=== PATIENT | male | born 1945 | race Caucasian/White ===

== ENCOUNTER → 2016-11-02 | Outpatient (CLI) | payer MEDICARE ==
[~2016-11-02] VITALS: Ht 179.1 cm; Wt 138.3 kg
[~2016-11-02] MED LIST: ASPI32ECTA PO; CELE-19 PO; FURO20TA2 PO; LIDOCAINE 2% INJ 100 MG/5 ML SDV (FOR ANES.) As Ordered ONE; LISI-538 PO; METF1000 PO; MONT10TA2 PO; MULT1TAB10 PO; NS 1,000 ML IV ONE; POTA10TA16 PO; PROPOFOL 200 MG/20 ML VIAL As Ordered ONE; TOPA50TA7 PO
--- NOTE | 2016-11-02 11:01 | ROOR ---
Patient Name: Wayne Tello Procedure Date: 11/02/2016 10:32 AM Date of : 1945 Age: 71 Room: [facility] Gender: Male Note Status: Finalized Procedure: Colonoscopy Indications: Heme positive stool Providers: DO Bailey Giraldo MD: ANGELINA ESCOBAR Requesting Provider: Medicines: Propofol per Anesthesia Complications: No immediate complications. Procedure: Pre-Anesthesia Assessment: - Prior to the procedure, a History and Physical was performed, and patient medications and allergies were reviewed. The patient is competent. The risks and benefits of the procedure and the sedation options and risks were discussed with the patient. All questions were answered and informed consent was obtained. Patient identification and proposed procedure were verified by the physician, the nurse, the anesthesiologist and the restorative care technician in the endoscopy suite. Mental Status Examination: alert and oriented. Airway Examination: normal oropharyngeal airway and neck mobility. Respiratory Examination: clear to auscultation. CV Examination: normal. Prophylactic Antibiotics: The patient does not require prophylactic antibiotics. Prior Anticoagulants: The patient has taken no previous anticoagulant or antiplatelet agents. ASA Grade Assessment: II - A patient with mild systemic disease. After reviewing the risks and benefits, the patient was deemed in satisfactory condition to undergo the procedure. The anesthesia plan was to use monitored anesthesia care (MAC). Immediately prior to administration of medications, the patient was re-assessed for adequacy to receive sedatives. The heart rate, respiratory rate, oxygen saturations, blood pressure, adequacy of pulmonary ventilation, and response to care were monitored throughout the procedure. The physical status of the patient was re-assessed after the procedure. The Colonoscope was introduced through the anus and advanced to the ascending colon. The colonoscopy was performed without difficulty. The patient tolerated the procedure well. Findings: The perianal exam findings include non-thrombosed internal hemorrhoids and internal hemorrhoids that prolapse with straining, but require manual replacement into the anal canal (Grade III). The exam was otherwise without abnormality on direct and retroflexion views. Impression: - Non-thrombosed internal hemorrhoids and internal hemorrhoids that prolapse with straining, but require manual replacement into the anal canal (Grade III) found on perianal exam. - The examination was otherwise normal on direct and retroflexion views. - No specimens collected. Recommendation: - Patient has a contact number available for emergencies. The signs and symptoms of potential delayed complications were discussed with the patient. Return to normal activities tomorrow. Written discharge instructions were provided to the patient. - Repeat colonoscopy in 5-10 years for screening purposes. - Return to my office in 2 weeks. - Telephone my office to schedule appointment. Niko Garcia DO 11/02/2016 11:01:01 AM This report has been signed electronically. Number of Addenda: 0 Note Initiated On: 11/02/2016 10:32 AM Estimated Blood Loss: Estimated blood loss was minimal.
[2016-11-02 11:25] VITALS: BP 133/66
== END ==
LOC: M OPP 09:44
PROVIDERS: ATTEND Surgery
DX: R19.5 Other fecal abnormalities (principal); K64.2 Third degree hemorrhoids; I10 Essential (primary) hypertension; E78.5 Hyperlipidemia, unspecified; E55.9 Vitamin D deficiency, unspecified; M19.90 Unspecified osteoarthritis, unspecified site; M54.2 Cervicalgia; M54.5 Low back pain; G47.30 Sleep apnea, unspecified; F41.9 Anxiety disorder, unspecified; Z87.891 Personal history of nicotine dependence; Z79.84 Long term (current) use of oral hypoglycemic drugs; Z79.899 Other long term (current) drug therapy

== ENCOUNTER 2023-01-25 11:04 | Day surgery (SDC) | payer MEDICARE, BC ==
[~2023-01-25] VITALS: Ht 177.8 cm; Wt 165.7 kg
[~2023-01-25 11:04] MED LIST changes: +ASPI-255 PO; -ASPI32ECTA PO; +BSS IRRIG/VANCO(10MG)/TOBRA(5MG)/EPINEPH(1:1000-0.5CC)500ML BAG-ORONLY IR ONE; +CEFUROXIME 1MG/0.1ML INTRACAMERAL INJ As Ordered ONE; -CELE-19 PO; +CELE1CAP4 PO; +FLOM0.4C39 PO; +LIDOCAINE 1% SDV 5ML VIAL As Ordered ONE; -LIDOCAINE 2% INJ 100 MG/5 ML SDV (FOR ANES.) As Ordered ONE; +LIDOCAINE 3.5 % 1ML OPHTH TOPICAL GEL OU ONE; -LISI-538 PO; +LISI20TA33 PO; -METF1000 PO; +METF10004 PO; +MIDAZOLAM INJ 2MG/2ML VIAL As Ordered ONE; -MONT10TA2 PO; +MONT10TA97 PO; -NS 1,000 ML IV ONE; +OFLOXACIN 0.3 % (OCUFLOX) OPTH SOL 5ML OD ONE; +OMEG12002 PO; +PHENYLEPHRINE 10% OPHTH SOL 5ML OD PRN; +POTA-149 PO; -POTA10TA16 PO; -PROPOFOL 200 MG/20 ML VIAL As Ordered ONE; -TOPA50TA7 PO; +TOPA50TA8 PO; +VITMTA PO
[2023-01-25] MEDS ORDERED: ACET650T15 PO (13:16)
[2023-01-25] MEDS: CYCLOPENTOLATE 1% OPHTH SOLN 2ML BTL OD SCH ×2 (13:18→13:23)
[2023-01-25] MEDS: TROPICAMIDE 1% OPHTH SOLN 15ML OD SCH ×2 (13:18→13:23)
[2023-01-25] MEDS: PHENYLEPHRINE 2.5% OPHTH SOL 2ML OD SCH ×2 (13:18→13:23)
[2023-01-25 14:20] VITALS: BP 151/71; TEMP 97.5; O2SAT 96
== END 2023-01-25 14:41 | disposition home or self-care (01) ==
LOC: M SDC 11:04
PROVIDERS: ATTEND Ophthalmology
DX: H25.11 Age-related nuclear cataract, right eye (principal); I10 Essential (primary) hypertension; M19.90 Unspecified osteoarthritis, unspecified site; M54.9 Dorsalgia, unspecified; R06.02 Shortness of breath; R06.83 Snoring; G47.30 Sleep apnea, unspecified; F17.220 Nicotine dependence, chewing tobacco, uncomplicated; Z79.84 Long term (current) use of oral hypoglycemic drugs; Z79.899 Other long term (current) drug therapy
CPT/HCPCS: 66982; J0697; J2250; V2632

== ENCOUNTER 2025-02-03 06:46 | Inpatient (IN) | payer MEDICARE ==
[~2025-02-03] VITALS: Ht 177.8 cm; Wt 157.3 kg
[2025-02-03] VITALS (7 sets, daily range): BP systolic 131–150; BP diastolic 64–97; TEMP 97.2–97.6; O2SAT 93–98
[~2025-02-03 06:46] MED LIST changes: +ACET-1515 PO; -BSS IRRIG/VANCO(10MG)/TOBRA(5MG)/EPINEPH(1:1000-0.5CC)500ML BAG-ORONLY IR ONE; -CEFUROXIME 1MG/0.1ML INTRACAMERAL INJ As Ordered ONE; -FLOM0.4C39 PO; -LIDOCAINE 1% SDV 5ML VIAL As Ordered ONE; -LIDOCAINE 3.5 % 1ML OPHTH TOPICAL GEL OU ONE; -MIDAZOLAM INJ 2MG/2ML VIAL As Ordered ONE; -OFLOXACIN 0.3 % (OCUFLOX) OPTH SOL 5ML OD ONE; -PHENYLEPHRINE 10% OPHTH SOL 5ML OD PRN; +TAMS-18 PO
[2025-02-03] MEDS ORDERED: IPRATROPIUM 0.5 MG/ALBUTEROL 2.5 MG INH SOL UD 3 ML As Ordered ONE (06:57)
[2025-02-03] MEDS ORDERED: ALBUTEROL SULFATE 2.5 MG/0.5 ML INH CONCENTRATE NEB SOLN As Ordered ONE (06:57)
[2025-02-03] MEDS: LEVALBUTEROL 1.25 MG 0.5ML CONCENTRATE NEB NEB ONE ×2 (07:05→07:06)
[2025-02-03] MEDS: IPRATROPIUM 0.5 MG/ALBUTEROL 2.5 MG INH SOL UD 3 ML NEB ONE ×2 (07:05→07:10)
[2025-02-03] MEDS: ALBUTEROL SULFATE 2.5 MG/0.5 ML INH CONCENTRATE NEB SOLN NEB ONE (07:11)
[2025-02-03 07:21] LABS: VENOUS BASE EXCESS -9.0 (-2.0-2.0); VENOUS HCO3 18.1 MMOL/L (23.0-27.0); VENOUS O2 SATURATION 86.2 % (60.0-80.0); VENOUS PARTIAL PRESSURE CO2 43.8 mmHg (38.0-50.0); VENOUS PARTIAL PRESSURE O2 53.9 mmHg (30.0-50.0); VENOUS PH 7.234 UNITS (7.330-7.430); VENOUS STANDARD HCO3 17.0 MMOL/L; VENOUS TOTAL CO2 19.4 MMOL/L (24.0-28.0)
[2025-02-03 07:33] LABS: BASO # 0.0 10^3/uL (0.0-0.2); BASO % 0.3 % (0.0-1.0); EOS # 0.1 10^3/uL (0.0-0.5); EOS % 0.9 % (0.0-3.0); LYMPH # 0.6 10^3/uL (1.5-5.0); LYMPH % 4.0 % (24.0-44.0); MONO # 1.2 10^3/uL (0.0-0.8); MONO % 7.9 % (2.0-8.0); NEUTROPHILS # 12.9 10^3/uL (1.5-8.5); NEUTROPHILS % 86.4 % (36.0-66.0); PLATELET COUNT, AUTOMATED 297 10^3/uL (150-450)
[2025-02-03] MEDS: FUROSEMIDE 100 MG/10 ML VIAL IV ONE (07:36)
[2025-02-03 07:59] LABS: ALT/SGPT 49.0 U/L (7.0-40); AST/SGOT 55.0 U/L (<34); CALCIUM LEVEL 9.0 MG/DL (8.3-10.6); CARBON DIOXIDE LEVEL 21.0 MMOL/L (20-31); CHLORIDE LEVEL 97.0 MMOL/L (98-107); CREATININE FOR GFR 1.47 MG/DL (0.70-1.30); GLOMERULAR FILTRATION RATE 47.9 (>35); POTASSIUM SERUM 5.4 MMOL/L (3.5-5.1); SODIUM LEVEL 129.0 MMOL/L (136-145)
[2025-02-03 08:01] LABS: THYROXINE (T4) 4.9 UG/DL (4.5-10.9)
[2025-02-03] MEDS ORDERED: ALBU8.5H INH (08:51)
[2025-02-03] MEDS ORDERED: METF-839 PO (08:51)
[2025-02-03] MEDS ORDERED: MELO15TA28 PO (08:51)
[2025-02-03] MEDS ORDERED: AZEL1SPR3 NARES (08:51)
[2025-02-03] MEDS ORDERED: DULO1CAP6 PO (08:51)
[2025-02-03] MEDS ORDERED: CIPR500T39 PO (08:54)
[2025-02-03] MEDS ORDERED: HOME MED LIST COMPLETE! XX SCH (08:55)
[2025-02-03] MEDS: TAMSULOSIN 0.4 MG CAP PO SCH (09:00)
[2025-02-03] MEDS: TOPIRAMATE 25 MG TAB PO SCH (09:00)
[2025-02-03] MEDS ORDERED: ISOVUE-370 76% 100 ML VIAL As Ordered ONE (09:18)
[2025-02-03 10:57] LABS: ABG BASE EXCESS -8.9 (-2.0-2.0); ABG HCO3 17.8 MMOL/L (22.0-26.0); ABG O2 SATURATION 99.1 % (95.0-99.0); ABG PARTIAL PRESSURE CO2 41.2 mmHg (35.0-45.0); ABG PARTIAL PRESSURE O2 149.1 mmHg (75.0-100.0); ABG STANDARD HCO3 17.4 MMOL/L. (22.0-26.0); ABG TOTAL CO2 19.0 MMOL/L (23.0-31.0); ABG pH (ARTERIAL) 7.253 UNITS (7.350-7.450)
[2025-02-03 11:16] LABS: POTASSIUM SERUM 5.0 MMOL/L (3.5-5.1)
[2025-02-03] MEDS: LevoFLOXacin IV 750 MG in IV 1 EA IV ONE (11:20)
[2025-02-03] MEDS ORDERED: DEXTROSE 50% 50 ML SYRINGE IV PRN (12:55)
[2025-02-03] MEDS ORDERED: ALBUTEROL SULFATE 2.5 MG/0.5 ML INH CONCENTRATE NEB SOLN NEB PRN (12:55)
[2025-02-03] MEDS ORDERED: GLUCAGON INJ 1 MG VIAL SC PRN (12:55)
[2025-02-03] MEDS ORDERED: GLUCOSE 4 GM CHEW PO PRN (12:55)
[2025-02-03] MEDS: FUROSEMIDE injection 100 MG, VIAL 2 BAG 13MM ADAPTER 1 EACH in NS 100 ML IV SCH (13:20)
[2025-02-03] MEDS: IPRATROPIUM 0.5 MG/2.5 ML (0.02%) SOLN NEB INH SCH (14:00)
[2025-02-03] MEDS: LEVALBUTEROL 1.25 MG 0.5ML CONCENTRATE NEB INH SCH (14:00)
[2025-02-03 14:51] LABS: ABG BASE EXCESS -3.2 (-2.0-2.0); ABG HCO3 21.9 MMOL/L (22.0-26.0); ABG O2 SATURATION 99.0 % (95.0-99.0); ABG PARTIAL PRESSURE CO2 39.5 mmHg (35.0-45.0); ABG PARTIAL PRESSURE O2 132.4 mmHg (75.0-100.0); ABG STANDARD HCO3 21.8 MMOL/L. (22.0-26.0); ABG TOTAL CO2 23.1 MMOL/L (23.0-31.0); ABG pH (ARTERIAL) 7.361 UNITS (7.350-7.450)
[2025-02-03] MEDS: INSULIN LISPRO (NovoLOG) PER UNIT SC SCH ×2 (15:14→22:20)
[2025-02-03] MEDS: BUDESONIDE 0.5 MG/2 ML INHALATION SUSPENSION NEB SCH (19:19)
[2025-02-03] MEDS: HEPARIN SOD 5000 UNITS/ML 1 ML VIAL/SYRINGE SQ SCH (22:12)
[2025-02-04] VITALS (17 sets, daily range): BP systolic 119–152; BP diastolic 63–85; TEMP 96–98.1; O2SAT 95–99
[2025-02-04 05:54] LABS: PLATELET COUNT, AUTOMATED 312 10^3/uL (150-450)
[2025-02-04 06:16] LABS: ALT/SGPT 47.0 U/L (7.0-40); AST/SGOT 48.0 U/L (<34); CALCIUM LEVEL 9.0 MG/DL (8.3-10.6); CARBON DIOXIDE LEVEL 24.0 MMOL/L (20-31); CHLORIDE LEVEL 95.0 MMOL/L (98-107); CREATININE FOR GFR 1.55 MG/DL (0.70-1.30); GLOMERULAR FILTRATION RATE 45.0 (>35); POTASSIUM SERUM 4.1 MMOL/L (3.5-5.1); SODIUM LEVEL 133.0 MMOL/L (136-145)
[2025-02-04] MEDS: IPRATROPIUM 0.5 MG/ALBUTEROL 2.5 MG INH SOL UD 3 ML NEB ONE (09:00)
[2025-02-04] MEDS ORDERED: predniSONE 20 MG TAB PO SCH (09:00)
[2025-02-04] MEDS: NYSTATIN 100,000 UNITS/GM TOPICAL PWD 15 GM TOP SCH (09:00)
[2025-02-04] MEDS: NYSTATIN 500,000 UNITS/5 ML SUSP UDC SS SCH (12:11)
[2025-02-04 12:33] LABS: KETONE, URINE AUTO RFX NEGATIVE (NEGATIVE); MUCUS, URINE RFX SMALL (NEGATIVE); NITRITE, URINE AUTO RFX NEGATIVE (NEGATIVE); RBC, URINE AUTO RFX TNTC /HPF (0-3); SQUAM EPITHELIAL CELL UR AURFX 0 /HPF (0-6); WBC, URINE AUTO RFX 4 /HPF (0-3)
[2025-02-04 12:37] LABS: LEUKOCYTE ESTERASE UR AUTO RFX TRACE (NEGATIVE)
[2025-02-04] MEDS ORDERED: FLUCONAZOLE 50 MG TABLET PO ONE (13:00)
[2025-02-04] MEDS ORDERED: MORPHINE 10 MG/0.5 ML ORAL CONCENTRATE SOLUTION U/D SL PRN (13:05)
[2025-02-04] MEDS: FLUCONAZOLE 100 MG TAB PO ONE (13:47)
[2025-02-04 15:29] LABS: C REACTIVE PROTEIN QUANTITATIV 7.04 MG/DL (<1.0)
[2025-02-04 15:44] LABS: ERYTHROCYTE SEDIMENTATION RATE 63 mm/hr (0-20)
[2025-02-05] VITALS (12 sets, daily range): BP systolic 137–201; BP diastolic 68–107; TEMP 96.3–98.2; O2SAT 90–99
[2025-02-05 08:00] LABS: BASO # 0.0 10^3/uL (0.0-0.2); BASO % 0.1 % (0.0-1.0); EOS # 0.0 10^3/uL (0.0-0.5); EOS % 0.0 % (0.0-3.0); LYMPH # 0.3 10^3/uL (1.5-5.0); LYMPH % 2.3 % (24.0-44.0); MONO # 0.4 10^3/uL (0.0-0.8); MONO % 2.8 % (2.0-8.0); NEUTROPHILS # 12.3 10^3/uL (1.5-8.5); NEUTROPHILS % 94.1 % (36.0-66.0); PLATELET COUNT, AUTOMATED 329 10^3/uL (150-450)
[2025-02-05 08:13] LABS: ERYTHROCYTE SEDIMENTATION RATE 62 mm/hr (0-20)
[2025-02-05 08:26] LABS: CALCIUM LEVEL 9.2 MG/DL (8.3-10.6)
[2025-02-05 08:30] LABS: CK-MB VALUE MASS 5.6 NG/ML (<3.6)
[2025-02-05 08:32] LABS: ALT/SGPT 68.0 U/L (7.0-40); AST/SGOT 64.0 U/L (<34); C REACTIVE PROTEIN QUANTITATIV 3.84 MG/DL (<1.0); CALCIUM LEVEL 9.2 MG/DL (8.3-10.6); CARBON DIOXIDE LEVEL 28.0 MMOL/L (20-31); CHLORIDE LEVEL 96.0 MMOL/L (98-107); CREATININE FOR GFR 1.58 MG/DL (0.70-1.30); GLOMERULAR FILTRATION RATE 43.9 (>35); MAGNESIUM LEVEL 2.0 MG/DL (1.8-2.4); POTASSIUM SERUM 3.7 MMOL/L (3.5-5.1); SODIUM LEVEL 137.0 MMOL/L (136-145)
[2025-02-05 08:35] LABS: CPK CREATINE PHOSPHOKINASE 249.0 U/L (46-171); MB/CK RELATIVE INDEX 2.24 (< OR =4)
[2025-02-05] MEDS: NICOTINE 21 MG/24 HR 1 EA TRANSDERMAL TD SCH (08:56)
[2025-02-05] MEDS: FLUCONAZOLE 100 MG TAB PO SCH (08:56)
[2025-02-05] MEDS: METOPROLOL 5 MG/5 ML VIAL IV SCH (08:58)
[2025-02-05] MEDS: hydrALAZINE 20 MG/ML 1 ML VIAL IV STA (20:27)
[2025-02-06] VITALS (9 sets, daily range): BP systolic 123–178; BP diastolic 63–92; TEMP 96.2–97.4; O2SAT 88–97
[2025-02-06] MEDS: **hydrALAZINE** 10 MG TAB PO SCH
[2025-02-06 06:17] LABS: BASO # 0.0 10^3/uL (0.0-0.2); BASO % 0.1 % (0.0-1.0); EOS # 0.0 10^3/uL (0.0-0.5); EOS % 0.0 % (0.0-3.0); LYMPH # 0.3 10^3/uL (1.5-5.0); LYMPH % 3.0 % (24.0-44.0); MONO # 0.7 10^3/uL (0.0-0.8); MONO % 6.1 % (2.0-8.0); NEUTROPHILS # 10.0 10^3/uL (1.5-8.5); NEUTROPHILS % 89.8 % (36.0-66.0); PLATELET COUNT, AUTOMATED 324 10^3/uL (150-450)
[2025-02-06 06:55] LABS: CALCIUM LEVEL 9.0 MG/DL (8.3-10.6); CARBON DIOXIDE LEVEL 31 MMOL/L (20-31); CHLORIDE LEVEL 97 MMOL/L (98-107); CHOLESTEROL LEVEL 155 MG/DL (<200); CHOLESTEROL RISK RATIO 3.05 (<5); CREATININE FOR GFR 1.70 MG/DL (0.70-1.30); GLOMERULAR FILTRATION RATE 40.3 (>35); LDL CHOLESTEROL 86.6 MG/DL (<100); MAGNESIUM LEVEL 2.1 MG/DL (1.8-2.4); NON-HDL-C 104.2 MG/DL; POTASSIUM SERUM 3.3 MMOL/L (3.5-5.1); SODIUM LEVEL 140 MMOL/L (136-145); TRIGLYCERIDES LEVEL 88 MG/DL (<150)
[2025-02-06 07:34] LABS: HEPATITIS C VIRUS ABY INDEX < 0.02 INDEX (<0.8)
[2025-02-06] MEDS ORDERED: FUROSEMIDE 40 MG TAB PO SCH (09:00)
[2025-02-06] MEDS: NS (Normal Saline) 0.9% 1,000 ML IV SCH (10:38)
[2025-02-06] MEDS: METOPROLOL 5 MG/5 ML VIAL IV STA ×3 (14:54→22:29)
[2025-02-06] MEDS: TIOTROPIUM BROM 2.5MCG/ACTUATION 4GM INH INH SCH (15:57)
[2025-02-06] MEDS: POTASSIUM CHLORIDE 10MEQ SR TABLET PO ONE (16:30)
[2025-02-06] MEDS: **hydrALAZINE** 10 MG TAB PO ONE (16:31)
[2025-02-06 16:46] LABS: CALCIUM LEVEL 9.0 MG/DL (8.3-10.6); CARBON DIOXIDE LEVEL 26.0 MMOL/L (20-31); CHLORIDE LEVEL 96.0 MMOL/L (98-107); CREATININE FOR GFR 1.78 MG/DL (0.70-1.30); GLOMERULAR FILTRATION RATE 38.1 (>35); POTASSIUM SERUM 3.3 MMOL/L (3.5-5.1); SODIUM LEVEL 136.0 MMOL/L (136-145)
[2025-02-06] MEDS: hydrALAZINE 20 MG/ML 1 ML VIAL IV STA (20:48)
[2025-02-06] MEDS: METOPROLOL TART 50 MG TAB PO ONE (21:26)
[2025-02-07 03:57] VITALS: BP 149/70; TEMP 96.9; O2SAT 93
[2025-02-07 07:39] LABS: BASO # 0.0 10^3/uL (0.0-0.2); BASO % 0.2 % (0.0-1.0); EOS # 0.0 10^3/uL (0.0-0.5); EOS % 0.0 % (0.0-3.0); LYMPH # 0.3 10^3/uL (1.5-5.0); LYMPH % 2.7 % (24.0-44.0); MONO # 0.5 10^3/uL (0.0-0.8); MONO % 4.0 % (2.0-8.0); NEUTROPHILS # 10.5 10^3/uL (1.5-8.5); NEUTROPHILS % 91.8 % (36.0-66.0); PLATELET COUNT, AUTOMATED 301 10^3/uL (150-450)
[2025-02-07 07:45] VITALS: BP 159/78; TEMP 97.5; O2SAT 91
[2025-02-07 08:18] LABS: CALCIUM LEVEL 8.9 MG/DL (8.3-10.6); CARBON DIOXIDE LEVEL 32.0 MMOL/L (20-31); CHLORIDE LEVEL 97.0 MMOL/L (98-107); CREATININE FOR GFR 1.63 MG/DL (0.70-1.30); GLOMERULAR FILTRATION RATE 42.3 (>35); MAGNESIUM LEVEL 2.4 MG/DL (1.8-2.4); POTASSIUM SERUM 4.1 MMOL/L (3.5-5.1); SODIUM LEVEL 139.0 MMOL/L (136-145)
[2025-02-07] MEDS: APIXABAN 5 MG TAB PO SCH (08:22)
[2025-02-07] MEDS: POTASSIUM CHLORIDE 10MEQ SR TABLET PO ONE (08:41)
[2025-02-07] MEDS ORDERED: METOPROLOL TART 25 MG TABLET PO SCH (09:00)
[2025-02-07] MEDS: METOPROLOL SUCC. 50 MG *XL* TAB PO SCH (09:23)
[2025-02-07 12:00] VITALS: BP 178/86; TEMP 97.6; O2SAT 98
[2025-02-07] MEDS ORDERED: PILL CUTTER 1 EACH XX PRN (13:45)
[2025-02-07] MEDS ORDERED: PILL CUTTER 1 EACH XX ONE (13:45)
[2025-02-07] MEDS: METOPROLOL SUCC. 50 MG *XL* TAB PO ONE (13:49)
[2025-02-07 16:00] VITALS: BP 164/74; TEMP 97.6; O2SAT 96
[2025-02-07 20:35] VITALS: BP 140/74; TEMP 97.3; O2SAT 92
[2025-02-07 23:47] VITALS: BP 145/74; TEMP 97.5; O2SAT 92
[2025-02-08] VITALS (18 sets, daily range): BP systolic 140–174; BP diastolic 72–89; TEMP 97–98; O2SAT 83–96
[2025-02-08 05:52] LABS: BASO # 0.0 10^3/uL (0.0-0.2); BASO % 0.2 % (0.0-1.0); EOS # 0.0 10^3/uL (0.0-0.5); EOS % 0.0 % (0.0-3.0); LYMPH # 0.4 10^3/uL (1.5-5.0); LYMPH % 3.1 % (24.0-44.0); MONO # 0.4 10^3/uL (0.0-0.8); MONO % 3.5 % (2.0-8.0); NEUTROPHILS # 10.9 10^3/uL (1.5-8.5); NEUTROPHILS % 91.9 % (36.0-66.0); PLATELET COUNT, AUTOMATED 250 10^3/uL (150-450)
[2025-02-08 06:18] LABS: CALCIUM LEVEL 8.8 MG/DL (8.3-10.6); CARBON DIOXIDE LEVEL 29.0 MMOL/L (20-31); CHLORIDE LEVEL 100.0 MMOL/L (98-107); CREATININE FOR GFR 1.5 MG/DL (0.70-1.30); GLOMERULAR FILTRATION RATE 46.8 (>35); MAGNESIUM LEVEL 2.4 MG/DL (1.8-2.4); POTASSIUM SERUM 3.9 MMOL/L (3.5-5.1); SODIUM LEVEL 140.0 MMOL/L (136-145)
[2025-02-08] MEDS ORDERED: PILL CUTTER 1 EACH XX PRN (08:50)
[2025-02-08] MEDS ORDERED: METOPROLOL SUCC. 100 MG *XL* TAB PO SCH (09:00)
[2025-02-08] MEDS: DOXYCYCLINE HYCLATE 100 MG TABLET PO SCH (09:03)
[2025-02-08] MEDS: METOPROLOL SUCC. 25 MG *XL* TAB PO ONE (09:04)
[2025-02-08] MEDS: FUROSEMIDE 40 MG TAB PO ONE (09:04)
[2025-02-08] MEDS: MUPIROCIN 2% OINT 22 GM TUBE TOP SCH (09:43)
[2025-02-08] MEDS ORDERED: metOLazone 2.5 MG TAB PO ONE (10:00)
[2025-02-08] MEDS: METOPROLOL SUCC. 25 MG *XL* TAB PO SCH (20:35)
[2025-02-09 04:04] VITALS: BP 140/88; TEMP 98.1; O2SAT 98
[2025-02-09 05:42] LABS: BASO # 0.0 10^3/uL (0.0-0.2); BASO % 0.3 % (0.0-1.0); EOS # 0.0 10^3/uL (0.0-0.5); EOS % 0.0 % (0.0-3.0); LYMPH # 0.5 10^3/uL (1.5-5.0); LYMPH % 4.6 % (24.0-44.0); MONO # 0.7 10^3/uL (0.0-0.8); MONO % 6.2 % (2.0-8.0); NEUTROPHILS # 10.3 10^3/uL (1.5-8.5); NEUTROPHILS % 86.8 % (36.0-66.0); PLATELET COUNT, AUTOMATED 253 10^3/uL (150-450)
[2025-02-09 06:09] LABS: CALCIUM LEVEL 8.6 MG/DL (8.3-10.6); CARBON DIOXIDE LEVEL 31.0 MMOL/L (20-31); CHLORIDE LEVEL 102.0 MMOL/L (98-107); CREATININE FOR GFR 1.42 MG/DL (0.70-1.30); GLOMERULAR FILTRATION RATE 50.0 (>35); MAGNESIUM LEVEL 2.4 MG/DL (1.8-2.4); POTASSIUM SERUM 3.6 MMOL/L (3.5-5.1); SODIUM LEVEL 141.0 MMOL/L (136-145)
[2025-02-09 07:21] VITALS: BP 142/80; TEMP 97.9; O2SAT 95
[2025-02-09] MEDS: metOLazone 2.5 MG TAB PO ONE (09:40)
[2025-02-09] MEDS: predniSONE 10 MG TAB PO SCH (09:41)
[2025-02-09] MEDS: METOPROLOL SUCC. 25 MG *XL* TAB PO SCH (09:41)
[2025-02-09] MEDS: FUROSEMIDE 40 MG TAB PO SCH (10:55)
[2025-02-09 13:14] VITALS: BP 150/84; TEMP 98; O2SAT 95
[2025-02-09 13:48] LABS: ESTIMATED AVERAGE GLUCOSE 108.0 MG/DL (60-110)
[2025-02-09 16:23] VITALS: BP 140/80; TEMP 98.1; O2SAT 94
[2025-02-09] MEDS: METOPROLOL SUCC. 25 MG *XL* TAB PO ONE (16:25)
[2025-02-09] MEDS ORDERED: IPRA0.00 INH (17:28)
[2025-02-09] MEDS ORDERED: SPIR12.9 INH (17:28)
[2025-02-09] MEDS ORDERED: PRED10TA2 PO (17:28)
[2025-02-09] MEDS ORDERED: ELIQ5TAB PO (17:28)
[2025-02-09] MEDS ORDERED: NICO21PAT TD (17:28)
[2025-02-09] MEDS ORDERED: METO1TAB33 PO (17:28)
[2025-02-09] MEDS ORDERED: FURO40TA2 PO (17:28)
[2025-02-09] MEDS ORDERED: ALBU8.5H INH (17:28)
[2025-02-09] MEDS ORDERED: PRIL20TA2 PO (17:28)
[2025-02-09 18:47] LABS: MYCOPLASMA PNEUMONIAE IGG 1.28 (<=0.90); MYCOPLASMA PNEUMONIAE IGM 27.0 U/mL (<770)
[2025-02-09 20:30] VITALS: BP 140/78; TEMP 98.4; O2SAT 93
[2025-02-09 23:47] VITALS: BP 124/72; TEMP 97.7; O2SAT 95
[2025-02-10 00:22] LABS: URINE STREP PNEUMONIAE ANTIGEN Not Detected (Not Detected)
[2025-02-10 04:05] VITALS: BP 128/76; TEMP 97.3; O2SAT 94
[2025-02-10 06:10] LABS: BASO # 0.0 10^3/uL (0.0-0.2); BASO % 0.3 % (0.0-1.0); EOS # 0.1 10^3/uL (0.0-0.5); EOS % 0.7 % (0.0-3.0); LYMPH # 1.1 10^3/uL (1.5-5.0); LYMPH % 9.2 % (24.0-44.0); MONO # 0.7 10^3/uL (0.0-0.8); MONO % 6.1 % (2.0-8.0); NEUTROPHILS # 9.7 10^3/uL (1.5-8.5); NEUTROPHILS % 81.2 % (36.0-66.0); PLATELET COUNT, AUTOMATED 237 10^3/uL (150-450)
[2025-02-10 07:25] VITALS: BP 140/70; TEMP 97.4; O2SAT 100; O2SAT 97
[2025-02-10 08:02] LABS: CALCIUM LEVEL 8.8 MG/DL (8.3-10.6); CARBON DIOXIDE LEVEL 34.0 MMOL/L (20-31); CHLORIDE LEVEL 98.0 MMOL/L (98-107); CREATININE FOR GFR 1.34 MG/DL (0.70-1.30); GLOMERULAR FILTRATION RATE 53.6 (>35); MAGNESIUM LEVEL 2.3 MG/DL (1.8-2.4); POTASSIUM SERUM 3.7 MMOL/L (3.5-5.1); SODIUM LEVEL 142.0 MMOL/L (136-145)
[2025-02-10] MEDS: METOPROLOL SUCC. 100 MG *XL* TAB PO SCH (09:03)
[2025-02-10] MEDS ORDERED: INCR1INH INH (11:24)
== END 2025-02-10 13:08 | disposition home health service (06) | DRG 291 ==
LOC: M ED 06:46 → EDBD 06:46 → M ED INP 11:44 → M PCU 15:51
PROVIDERS: ADMIT Internal Medicine; ATTEND General Practice
PROC: B246ZZZ Ultrasonography of Right and Left Heart (ICD-10-PCS; principal; 2025-02-03)
DX: I11.0 Hypertensive heart disease with heart failure (principal); J96.01 Acute respiratory failure with hypoxia; I50.33 Acute on chronic diastolic (congestive) heart failure; E66.2 Morbid (severe) obesity with alveolar hypoventilation; E87.1 Hypo-osmolality and hyponatremia; N17.9 Acute kidney failure, unspecified; L02.31 Cutaneous abscess of buttock; I31.39 Other pericardial effusion (noninflammatory); Z68.42 Body mass index [BMI] 45.0-49.9, adult; B37.0 Candidal stomatitis; J98.11 Atelectasis; J44.1 Chronic obstructive pulmonary disease with (acute) exacerbation; R74.01 Elevation of levels of liver transaminase levels; N40.0 Benign prostatic hyperplasia without lower urinary tract symptoms; I48.0 Paroxysmal atrial fibrillation; R73.03 Prediabetes; G43.909 Migraine, unspecified, not intractable, without status migrainosus; M17.0 Bilateral primary osteoarthritis of knee; E87.5 Hyperkalemia; Z66 Do not resuscitate; Z87.891 Personal history of nicotine dependence; Z79.84 Long term (current) use of oral hypoglycemic drugs; Z79.899 Other long term (current) drug therapy; Z88.1 Allergy status to other antibiotic agents; Z88.2 Allergy status to sulfonamides; Z88.8 Allergy status to other drugs, medicaments and biological substances

== ENCOUNTER 2025-03-20 16:00 | Inpatient (IN) | payer MEDICARE ==
[~2025-03-20] VITALS: Ht 180.3 cm; Wt 155.5 kg
[2025-03-20] MEDS: NS (Normal Saline) 0.9% 1,000 ML IV SCH (10:00)
[~2025-03-20 16:00] MED LIST changes: +ALBU8.5H INH; +AZEL1SPR3 NARES; +CIPR500T39 PO; +DULO1CAP6 PO; +ELIQ5TAB PO; +FURO40TA2 PO; +INCR1INH INH; +IPRA0.00 INH; +MELO15TA28 PO; +METF-839 PO; +METO1TAB33 PO; +NICO21PAT TD; +PRED10TA2 PO; +PRIL20TA2 PO; +SPIR12.9 INH
[2025-03-20] MEDS: METOPROLOL 5 MG/5 ML VIAL IV SCH (16:25)
[2025-03-20 16:36] LABS: BASO # 0.1 10^3/uL (0.0-0.2); BASO % 0.5 % (0.0-1.0); EOS # 0.1 10^3/uL (0.0-0.5); EOS % 0.6 % (0.0-3.0); LYMPH # 0.7 10^3/uL (1.5-5.0); LYMPH % 5.5 % (24.0-44.0); MONO # 1.0 10^3/uL (0.0-0.8); MONO % 7.5 % (2.0-8.0); NEUTROPHILS # 10.9 10^3/uL (1.5-8.5); NEUTROPHILS % 85.1 % (36.0-66.0); PLATELET COUNT, AUTOMATED 269 10^3/uL (150-450)
[2025-03-20] MEDS ORDERED: MIDAZOLAM INJ 2 MG/2 ML VIAL As Ordered ONE (16:37)
[2025-03-20] MEDS: MIDAZOLAM INJ 2 MG/2 ML VIAL IV STA (16:46)
[2025-03-20] MEDS: NS 500 ML IV ONE ×2 (16:49→17:15)
[2025-03-20 17:10] LABS: ALT/SGPT 24.0 U/L (7.0-40); AST/SGOT 34.0 U/L (<34); CALCIUM LEVEL 9.5 MG/DL (8.3-10.6); CARBON DIOXIDE LEVEL 24.0 MMOL/L (20-31); CHLORIDE LEVEL 99.0 MMOL/L (98-107); CREATININE FOR GFR 1.71 MG/DL (0.70-1.30); GLOMERULAR FILTRATION RATE 40.0 (>35); MAGNESIUM LEVEL 1.7 MG/DL (1.8-2.4); POTASSIUM SERUM 5.3 MMOL/L (3.5-5.1); SODIUM LEVEL 135.0 MMOL/L (136-145)
[2025-03-20 17:30] LABS: INR 1.4
[2025-03-20] MEDS ORDERED: ISOVUE-370 76% 100 ML VIAL As Ordered ONE (17:56)
[2025-03-20] MEDS ORDERED: LIDO1PAD TOP (18:54)
[2025-03-20] MEDS ORDERED: OMEP-173 PO (18:54)
[2025-03-20] MEDS ORDERED: HOME MED LIST COMPLETE! XX SCH (18:55)
[2025-03-20] MEDS ORDERED: LEVALBUTEROL HFA 45 MCG/ACT 15 GM INHALER INH PRN (20:55)
[2025-03-20] MEDS ORDERED: MAALOX 30 ML SUSP *UDC PO PRN (20:55)
[2025-03-20] MEDS ORDERED: MOM 30 ML SUSPENSION UDC PO PRN (20:55)
[2025-03-20] MEDS: DOCUSATE SODIUM 100 MG CAPSULE PO SCH (21:00)
[2025-03-20] MEDS ORDERED: DEXTROSE 50% 50 ML SYRINGE IV PRN (21:35)
[2025-03-20] MEDS ORDERED: GLUCAGON INJ 1 MG VIAL SC PRN (21:35)
[2025-03-20] MEDS ORDERED: GLUCOSE 4 GM CHEW PO PRN (21:35)
[2025-03-20 23:48] LABS: VENOUS BASE EXCESS -2.6 (-2.0-2.0); VENOUS HCO3 24.0 MMOL/L (23.0-27.0); VENOUS O2 SATURATION 80.3 % (60.0-80.0); VENOUS PARTIAL PRESSURE CO2 49.3 mmHg (38.0-50.0); VENOUS PARTIAL PRESSURE O2 45.8 mmHg (30.0-50.0); VENOUS PH 7.305 UNITS (7.330-7.430); VENOUS STANDARD HCO3 21.9 MMOL/L; VENOUS TOTAL CO2 25.5 MMOL/L (24.0-28.0)
[2025-03-21] MEDS: APIXABAN 2.5 MG TAB PO SCH (00:26)
[2025-03-21] MEDS: LEVALBUTEROL 1.25 MG 0.5ML CONCENTRATE NEB NEB ONE (08:00)
[2025-03-21] MEDS: INSULIN LISPRO (NovoLOG) PER UNIT SC SCH (08:44)
[2025-03-21] MEDS: PANTOPRAZOLE 40MG VIAL IV SCH (08:45)
[2025-03-21] MEDS: TAMSULOSIN 0.4 MG CAP PO SCH (08:46)
[2025-03-21] MEDS: METOPROLOL SUCC. 50 MG *XL* TAB PO SCH (08:46)
[2025-03-21] MEDS: MONTELUKAST 10 MG TAB PO SCH (08:46)
[2025-03-21] MEDS: TOPIRAMATE 25 MG TAB PO SCH (08:46)
[2025-03-21] MEDS: AMIODARONE 200 MG TAB PO SCH (08:46)
[2025-03-21 08:54] LABS: PLATELET COUNT, AUTOMATED 227 10^3/uL (150-450)
[2025-03-21] MEDS: NYSTATIN 100,000 UNITS/GM TOPICAL PWD 15 GM TOP SCH (09:00)
[2025-03-21] MEDS ORDERED: FUROSEMIDE 20 MG TAB PO SCH (09:00)
[2025-03-21] MEDS ORDERED: POTASSIUM CHLORIDE 10MEQ SR TABLET PO SCH (09:00)
[2025-03-21] MEDS ORDERED: METOPROLOL TART 50 MG TAB PO SCH ×2 (09:00)
[2025-03-21 09:34] LABS: ALT/SGPT 19.0 U/L (7.0-40); AST/SGOT 21.0 U/L (<34); CALCIUM LEVEL 8.6 MG/DL (8.3-10.6); CARBON DIOXIDE LEVEL 27.0 MMOL/L (20-31); CHLORIDE LEVEL 102.0 MMOL/L (98-107); CREATININE FOR GFR 1.62 MG/DL (0.70-1.30); GLOMERULAR FILTRATION RATE 42.7 (>35); MAGNESIUM LEVEL 1.8 MG/DL (1.8-2.4); POTASSIUM SERUM 4.3 MMOL/L (3.5-5.1); SODIUM LEVEL 133.0 MMOL/L (136-145)
[2025-03-21] MEDS ORDERED: IPRATROPIUM 0.5 MG/ALBUTEROL 2.5 MG INH SOL UD 3 ML NEB PRN (09:45)
[2025-03-21] MEDS: FUROSEMIDE 40 MG/4 ML VIAL IV ONE (10:50)
[2025-03-21] MEDS: TIOTROPIUM BROM 2.5MCG/ACTUATION 4GM INH INH SCH (11:09)
[2025-03-21] MEDS: IPRATROPIUM 0.5 MG/ALBUTEROL 2.5 MG INH SOL UD 3 ML NEB SCH (11:09)
[2025-03-21 14:32] LABS: IRON (FE) 34.0 UG/DL (65-175); PERCENT SATURATION 16.3 % (19.7-50.0)
[2025-03-21 14:35] LABS: VITAMIN B12 LEVEL 847.0 PG/ML (211-911)
[2025-03-21 15:30] VITALS: BP 146/74; TEMP 98; O2SAT 96
[2025-03-21 20:34] VITALS: BP 120/56; TEMP 97.2; O2SAT 97
[2025-03-21] MEDS: ACETAMINOPHEN 325 MG TAB PO PRN (21:57)
[2025-03-22 03:34] VITALS: BP 111/55; TEMP 98.1; O2SAT 94
[2025-03-22 05:50] LABS: PLATELET COUNT, AUTOMATED 231 10^3/uL (150-450)
[2025-03-22 06:23] LABS: CALCIUM LEVEL 8.2 MG/DL (8.3-10.6); CARBON DIOXIDE LEVEL 26.0 MMOL/L (20-31); CHLORIDE LEVEL 103.0 MMOL/L (98-107); CREATININE FOR GFR 1.5 MG/DL (0.70-1.30); GLOMERULAR FILTRATION RATE 46.8 (>35); POTASSIUM SERUM 3.7 MMOL/L (3.5-5.1); SODIUM LEVEL 137.0 MMOL/L (136-145)
[2025-03-22 07:49] VITALS: BP 138/73; TEMP 97.6; O2SAT 97
[2025-03-22] MEDS ORDERED: AMIO200T54 PO ×2 (09:47)
[2025-03-22] MEDS ORDERED: METO1TAB7 PO (09:47)
[2025-03-22] MEDS ORDERED: FURO20TA2 PO (09:47)
[2025-03-22 09:54] VITALS: BP 138/73
[2025-03-22] MEDS: FLUZONE HIGH DOSE TRI (25-26) 0.5 ML SYRINGE IM.IMMUN ONE (11:55)
[2025-03-22] MEDS ORDERED: FERR325T3 PO (17:40)
== END 2025-03-22 12:41 | disposition home health service (06) | DRG 309 ==
LOC: M ED 16:00 → M ED INP 20:55 → M PCU 03-21 15:30
PROVIDERS: ADMIT Student in an Organized Health Care Education/Training Program; ATTEND Internal Medicine
PROC: B246ZZZ Ultrasonography of Right and Left Heart (ICD-10-PCS; principal; 2025-03-21)
DX: I47.10 Supraventricular tachycardia, unspecified (principal); I50.32 Chronic diastolic (congestive) heart failure; E66.2 Morbid (severe) obesity with alveolar hypoventilation; I13.0 Hypertensive heart and chronic kidney disease with heart failure and stage 1 through stage 4 chronic kidney disease, or unspecified chronic kidney disease; J98.11 Atelectasis; Z68.42 Body mass index [BMI] 45.0-49.9, adult; I48.0 Paroxysmal atrial fibrillation; R73.03 Prediabetes; M19.90 Unspecified osteoarthritis, unspecified site; G43.909 Migraine, unspecified, not intractable, without status migrainosus; J44.9 Chronic obstructive pulmonary disease, unspecified; D64.9 Anemia, unspecified; N18.30 Chronic kidney disease, stage 3 unspecified; K21.9 Gastro-esophageal reflux disease without esophagitis; I44.0 Atrioventricular block, first degree; N40.0 Benign prostatic hyperplasia without lower urinary tract symptoms; Z66 Do not resuscitate; Z87.891 Personal history of nicotine dependence; Z79.01 Long term (current) use of anticoagulants; Z79.84 Long term (current) use of oral hypoglycemic drugs; Z79.899 Other long term (current) drug therapy; Z88.1 Allergy status to other antibiotic agents; Z88.2 Allergy status to sulfonamides; Z88.8 Allergy status to other drugs, medicaments and biological substances

== ENCOUNTER → 2025-04-18 | Outpatient (REF) | payer MEDICARE ==
[~2025-04-18] MED LIST changes: +AMIO200T54 PO; +FERR325T3 PO; +LIDO1PAD TOP; +METO1TAB7 PO; +OMEP-173 PO
[2025-04-18 12:53] LABS: PLATELET COUNT, AUTOMATED 278 10^3/uL (150-450)
[2025-04-18 13:17] LABS: ALT/SGPT 19.0 U/L (7.0-40); AST/SGOT 25.0 U/L (<34); CALCIUM LEVEL 9.5 MG/DL (8.3-10.6); CARBON DIOXIDE LEVEL 26.0 MMOL/L (20-31); CHLORIDE LEVEL 99.0 MMOL/L (98-107); CREATININE FOR GFR 1.46 MG/DL (0.70-1.30); GLOMERULAR FILTRATION RATE 48.3 (>35); POTASSIUM SERUM 4.6 MMOL/L (3.5-5.1); SODIUM LEVEL 138.0 MMOL/L (136-145)
[2025-04-24 17:58] LABS: ALKALINE PHOSPHATASE ISO-MACR0 0 % (<=0); ALKALINE PHOSPHATASE ISO-PLAC 0 % (<=0); Alkaline Phosphatase Iso-Bone 39 % (28-66); Alkaline Phosphatase Iso-Intes 0 % (1-24); Alkaline Phosphatase Iso-Liver 61 % (25-69); TOTAL ALK PHOS 127 U/L (35-144)
== END ==
LOC: M SHH 12:32
PROVIDERS: ATTEND Physician Assistant
DX: I48.0 Paroxysmal atrial fibrillation (principal); I10 Essential (primary) hypertension; I50.9 Heart failure, unspecified; J44.9 Chronic obstructive pulmonary disease, unspecified; Z79.899 Other long term (current) drug therapy